=== PATIENT | male | born 1990 | race Caucasian/White ===

== ENCOUNTER 2017-03-07 19:34 | Inpatient (IN) | payer MEDICAID ==
[2017-03-07 22:14] LABS: HEMATOCRIT 39.6 % (42.0-54.0); HEMOGLOBIN 13.6 g/dL (13.5-17.5); MCH 31.1 pg (26.0-34.0); MCHC 34.3 g/dL (31.0-37.0); MCV 90.4 fL (80.0-100.0); MEAN PLATELET VOLUME 11.3 fL (7.4-10.4); PLATELET COUNT 239 10x3/uL (130-400); RBC 4.38 10x6/uL (4.20-6.10); RDW 12.7 % (11.5-14.5); WBC 30.5 10x3/uL (4.8-10.8)
[2017-03-07 22:29] LABS: ALBUMIN 3.7 g/dL (3.4-5.0); ALKALINE PHOSPHATASE 72 U/L (46-116); ALT (SGPT) 36 U/L (10-68); BILIRUBIN - TOTAL 0.58 mg/dL (0.2-1.3); CALC OSMOLALITY 273 mosm/kg (275-300); CALCIUM 8.9 mg/dL (8.5-10.1); CARBON DIOXIDE 24.3 mmol/L (21.0-32.0); CHLORIDE - SERUM 103 mmol/L (98-107); CREATININE - SERUM 1.1 mg/dL (0.6-1.3); GLUCOSE 104 mg/dL (74-106); POTASSIUM - SERUM 3.4 mmol/L (3.5-5.1); PROTEIN - SERUM 7.2 g/dL (6.4-8.2); SODIUM 137 mmol/L (136-145); UREA NITROGEN 12 mg/dL (7-18); eGFR NON AFRICAN AMERICAN 85 mL/min (90-120)
[2017-03-07 22:35] LABS: BASOPHILS 1 % (0-2); LYMPHOCYTES 4 % (15-50); MONOCYTES 1 % (2-11); NEUTROPHILS 86 % (40-80); PLATELET ESTIMATE NORMAL; PLATELET MORPHOLOGY GIANT PLTS PRESENT
[2017-03-08] MEDS ORDERED: HYDROCODONE-APA1 TAB PO (00:58)
--- NOTE | 2017-03-08 00:59 | NUR ---
PT ARRIVED TO ROOM AND USED RESTROOM GAIT STEADY, NO BALANCE ISSUES. PT STATES HE IS COLD. WARM BLANKET PROVIDED. PT LAYING DOWN. DENIES ANY NEEDS AT THIS TIME. PT IS AAO. WILL CPOC
--- NOTE | 2017-03-08 03:49 | NUR ---
TEMP IS 102.6 ORAL. [facility]. PT C/O PAIN WILL GET ORDERED PAIN MED. PT LAYING ON RIGHT SIDE IN BED. PT DENIES ANY NEEDS. WILL CPOC
[2017-03-08 06:02] VITALS: BP 129/58
--- NOTE | 2017-03-08 06:11 | NUR ---
PT TEMP IS NOW 100.8. WILL CONTINUE TO MONITOR PT. PT DENIES ANY NEEDS AT THIS TIME. NO S/S OF DISTRESS. WILL CPOC
[2017-03-08 08:00] VITALS: BP 131/64
[2017-03-08 08:13] VITALS: BP 128/68; BMI 36.2
--- NOTE | 2017-03-08 08:14 | NUR ---
AM ROUNDS - PT IS IN BED AND APEARS TO BE SLEEPING AT THIS TIME WITH EQUALA ND NON LABORED BREATHING. IV TO RIGHT HAND, SL. PT IS ON ROOM AIR. BED AT LOWEST POSITION. SIDE RAILS UP X2. CALL GRISSOM IN USE/REACH. WILL CONTINUE OT MONITOR
[2017-03-08 12:00] VITALS: BP 153/70
[2017-03-08 16:00] VITALS: BP 139/75
--- NOTE | 2017-03-08 19:33 | NUR ---
RECEIVED REPORT, WILL ASSUME CARE OF PT, PT SLEEPING, BED IS LOW, SR X2, CALL LIGHT IN REACH, WILL CONTINUE PLAN OF CARE
[2017-03-08 20:25] VITALS: BP 107/55
--- NOTE | 2017-03-08 22:48 | NUR ---
COMPLAINS OF BACK AND LEG PAIN, GAVE MORPHINE ORDER
--- NOTE | 2017-03-08 23:14 | NUR ---
PT AWAKE PLAYING ON PHONE. NO DISTRESS NOTED. WILL CONTINUE TO MONITOR.
[2017-03-09 00:51] VITALS: BP 121/57
--- NOTE | 2017-03-09 05:03 | NUR ---
COMPLAINS OF PAIN, GAVE MORPHINE ORDER
[2017-03-09 05:19] VITALS: BP 114/65
[2017-03-09 06:32] LABS: BASOPHILS 0.2 % (0-2); EOSINOPHILS 0.5 % (0-7); HEMATOCRIT 38.3 % (42.0-54.0); HEMOGLOBIN 12.6 g/dL (13.5-17.5); IMMATURE GRANULOCYTES 0.3 % (0-5); LYMPHOCYTES 12.9 % (15-50); MCH 30.2 pg (26.0-34.0); MCHC 32.9 g/dL (31.0-37.0); MCV 91.8 fL (80.0-100.0); MEAN PLATELET VOLUME 11.5 fL (7.4-10.4); NEUTROPHILS 80.1 % (40-80); PLATELET COUNT 205 10x3/uL (130-400); RBC 4.17 10x6/uL (4.20-6.10); RDW 13.5 % (11.5-14.5)
[2017-03-09 06:33] LABS: WBC 15.7 10x3/uL (4.8-10.8)
[2017-03-09 06:54] LABS: ALKALINE PHOSPHATASE 60 U/L (46-116); ALT (SGPT) 29 U/L (10-68); BILIRUBIN - TOTAL 0.15 mg/dL (0.2-1.3); CALCIUM 8.7 mg/dL (8.5-10.1); CARBON DIOXIDE 24.7 mmol/L (21.0-32.0); CHLORIDE - SERUM 107 mmol/L (98-107); GLUCOSE 148 mg/dL (74-106); POTASSIUM - SERUM 3.6 mmol/L (3.5-5.1); PROTEIN - SERUM 6.9 g/dL (6.4-8.2); SODIUM 140 mmol/L (136-145); eGFR NON AFRICAN AMERICAN > 90 mL/min (90-120)
[2017-03-09 06:55] LABS: CALC OSMOLALITY 279 mosm/kg (275-300); UREA NITROGEN 8 mg/dL (7-18)
[2017-03-09 08:21] VITALS: BP 111/50
[2017-03-09 12:26] VITALS: BP 128/74
--- NOTE | 2017-03-09 15:00 | NUR ---
ALERT AND ORIENTED X4. RESTING IN BED. RT HAND IV INFILTRATED. DC RT HAND IV TIP INTACT. RESITE IV TO LT FA 22G SUCCESSFUL X1 ATTEMPT. COMPLAINS OF RT LEG PAIN. FOLLOW PAIN MANAGEMENT ORDERED. DENIES SOB. BED LOCKED AND LOW. CALL LIGHT IN REACH. TWO SIDERAIL UP. SINUS RHTHYM 68bpm ON TELEMETY. REFUSE SCDs. AMBULATORY. GAIT STEADY.
[2017-03-09 15:58] VITALS: BP 127/76
[2017-03-09 19:32] VITALS: BP 125/79
--- NOTE | 2017-03-09 19:40 | NUR ---
PT IN BED RESTING QUEITLY. DENIES ANY PAIN OR NEEDS AT THIS TIME. BED IN LOW POSITION, CALL LIGHT WITHIN REACH.
--- NOTE | 2017-03-09 23:44 | NUR ---
PT C/O N/V. HAS NOT VOMITED BUT IS GAGGING. TOLD PT THAT SHE DOES NOT HAVE ANY ZOFRAN AVAILABLE AND THAT I WILL GIVE IT TO HER SOON IT IS AVAILABLE. PT STATED UNDERSTANDING. OFFERED PT SPRITE AND SHE SAID SHE WOULD TRY TO DRINK IT. GAVE PT COLD WASH CLOTH. CHANGED PTS BEDDING DUE TO INCONTINENCE CAUSED BY THE GAGGING/DRY-HEAVING. DENIES ANY OTHER NEEDS AT THIS TIME. BED IN LOW POSITION, CALL LIGHT WITHIN REACH.
[2017-03-10] VITALS: BP 122/69
--- NOTE | 2017-03-10 02:53 | NUR ---
PT IN BED RESTING QUIETLY WITH EYES CLOSED. BED RAILS UP X2. BREATHING EVEN AND UNLABORED. BED IN LOW POSITION, CALL LIGHT WITHIN REACH.
[2017-03-10 04:04] VITALS: BP 114/71
[2017-03-10 04:21] LABS: BASOPHILS 0.6 % (0-2); EOSINOPHILS 3.1 % (0-7); HEMATOCRIT 38.9 % (42.0-54.0); HEMOGLOBIN 12.8 g/dL (13.5-17.5); IMMATURE GRANULOCYTES 0.3 % (0-5); LYMPHOCYTES 37.5 % (15-50); MCH 30.2 pg (26.0-34.0); MCHC 32.9 g/dL (31.0-37.0); MCV 91.7 fL (80.0-100.0); MEAN PLATELET VOLUME 11.2 fL (7.4-10.4); MONOCYTES 9.7 % (2-11); NEUTROPHILS 48.8 % (40-80); PLATELET COUNT 222 10x3/uL (130-400); RBC 4.24 10x6/uL (4.20-6.10); RDW 13.4 % (11.5-14.5)
[2017-03-10 04:29] LABS: WBC 8.8 10x3/uL (4.8-10.8)
[2017-03-10 04:54] LABS: ALBUMIN 2.9 g/dL (3.4-5.0); ALKALINE PHOSPHATASE 54 U/L (46-116); ALT (SGPT) 26 U/L (10-68); BILIRUBIN - TOTAL 0.15 mg/dL (0.2-1.3); CALC OSMOLALITY 281 mosm/kg (275-300); CALCIUM 8.9 mg/dL (8.5-10.1); CHLORIDE - SERUM 106 mmol/L (98-107); CREATININE - SERUM 0.9 mg/dL (0.6-1.3); GLUCOSE 95 mg/dL (74-106); POTASSIUM - SERUM 4.1 mmol/L (3.5-5.1); SODIUM 142 mmol/L (136-145); UREA NITROGEN 9 mg/dL (7-18); eGFR NON AFRICAN AMERICAN > 90 mL/min (90-120)
--- NOTE | 2017-03-10 05:00 | NUR ---
PT RESTING IN BED WITH NO DISTRESS. NO NEEDS VOICED. CPOC.
--- NOTE | 2017-03-10 07:40 | NUR ---
AM ROUNDING- RECEIVED REPORT FROM MANDREL MAKER NURSE. PT IS CURRENTLY LAYING IN BED ON LEFT SIDE WITH EYES CLOSED RESTING. ON ROOM AIR. ON MONITOR SHOWING SR, HR 68. IV SEEN TO LEFT FOREARM THAT IS CURRENTLY SALINE LOCKED. NO NEED AT THIS CURRENT TIME. WILL CONTINUE TO MONITOR AND CONTINUE WITH PLAN OF CARE.
--- NOTE | 2017-03-10 07:48 | NUR ---
PT REFUSES SCDS. UP AD VIGNESH. ON LOVENOX INJECTION FOR DVT PREVENTION.
[2017-03-10 08:11] VITALS: BP 130/72
--- NOTE | 2017-03-10 10:29 | NUR ---
PAGED SARA ROMERO TO SEE ABOUT GETTING PT "ABREVA" REQUESTED BY PT FOR FEVER BLISTER. WILL AWAIT CALLBACK.
--- NOTE | 2017-03-10 10:33 | NUR ---
RECEIVED CALLBACK FROM SARA ROMERO. INFORMED HER THAT PT HAS FEVER BLISTER ON LIP AND IS REQUESTING ABREVA. SARA ROMERO STATES TO ORDER ABREVA. WILL PUT ORDERS IN GIVEN.
[2017-03-10 11:55] VITALS: BP 118/68
--- NOTE | 2017-03-10 12:53 | NUR ---
PT GIVEN MORPHINE ORDERED FOR 11/24 PAIN COMING FROM RIGHT LOWER EXTREMITY. PT DENIES ANY FURTHER NEED AT THIS TIME. WILL CONTINUE TO MONITOR.
--- NOTE | 2017-03-10 16:19 | NUR ---
PT IS CURRENTLY LAYING IN BED ON BACK WITH EYES CLOSED RESTING. PT DENIES ANY NEED AT CURRENT TIME. WILL CONTINUE TO MONITOR AND CONTINUE WITH PLAN OF CARE.
--- NOTE | 2017-03-10 18:07 | NUR ---
PT IS CURRENTLY SITTING UP IN BED WITH EYES OPEN RESTING. PT IS C/O OF 7/10 PAIN FROM RIGHT LEG. PT GIVEN NORCO PRN ORDERED FOR PAIN. PT DENIES ANY FURTHER NEED AT THIS TIME. WILL CONTINUE TO MONITOR.
[2017-03-10 19:00] VITALS: BP 120/72
--- NOTE | 2017-03-10 19:29 | NUR ---
PT SITTING UP IN BED, AWAKE, ALERT, ORIENTED, FAMILY AT BEDSIDE. PT DENIES ANY NEEDS. CONTINUE TO MONITOR CLOSELY. BED LOW, CALL LIGHT IN REACH, SIDE RAILS X 2, HOB 20 DEGREES.
--- NOTE | 2017-03-10 19:44 | NUR ---
PT CALLED REQUESTING TO BE SL AT THIS TIME. NO OTHER NEEDS. CONTINUE TO MONITOR.
--- NOTE | 2017-03-10 21:41 | NUR ---
WENT TO ADMINISTER PTS 21:00 VAN, AND PT WAS NOT IN ROOM, NOR IN HIS BATHROOM. PT DID NOT NOTIFY ME THAT HE WAS LEAVING HIS ROOM. WILL CONTINUE TO MONITOR.
--- NOTE | 2017-03-10 21:50 | NUR ---
PT BACK TO ROOM, STATED HE WENT TO [place] FOR A DR. TORRES. PT IS READY FOR A SHOWER. DENIES ANY OTHER NEEDS. CONTINUE TO MONITOR PT CLOSELY.
--- NOTE | 2017-03-10 23:22 | NUR ---
PT REQUESTS SERG AGRY FOR RLE PAIN. I ASKED PT HOW IT FEELS WHEN HE WALKS, PT STATES IT FEELS TIGHT BUT TOLERABLE. DENIES ANY OTHER NEEDS. CONTINUE TO MONITOR CLOSELY.
[2017-03-11] VITALS: BP 118/76
[2017-03-11 04:00] VITALS: BP 111/54
[2017-03-11 05:44] LABS: BASOPHILS 0.3 % (0-2); EOSINOPHILS 2.3 % (0-7); HEMATOCRIT 41.3 % (42.0-54.0); HEMOGLOBIN 13.8 g/dL (13.5-17.5); IMMATURE GRANULOCYTES 0.3 % (0-5); LYMPHOCYTES 38.5 % (15-50); MCH 30.3 pg (26.0-34.0); MCHC 33.4 g/dL (31.0-37.0); MCV 90.8 fL (80.0-100.0); MEAN PLATELET VOLUME 11.3 fL (7.4-10.4); MONOCYTES 6.9 % (2-11); NEUTROPHILS 51.7 % (40-80); RBC 4.55 10x6/uL (4.20-6.10); RDW 13.1 % (11.5-14.5); WBC 8.6 10x3/uL (4.8-10.8)
[2017-03-11 05:49] LABS: PLATELET COUNT 283 10x3/uL (130-400)
[2017-03-11 06:02] LABS: ALKALINE PHOSPHATASE 53 U/L (46-116); ALT (SGPT) 30 U/L (10-68); CALC OSMOLALITY 281 mosm/kg (275-300); CARBON DIOXIDE 27.9 mmol/L (21.0-32.0); CHLORIDE - SERUM 104 mmol/L (98-107); CREATININE - SERUM 0.8 mg/dL (0.6-1.3); GLUCOSE 94 mg/dL (74-106); POTASSIUM - SERUM 3.7 mmol/L (3.5-5.1); SODIUM 142 mmol/L (136-145); UREA NITROGEN 9 mg/dL (7-18); eGFR NON AFRICAN AMERICAN > 90 mL/min (90-120)
[2017-03-11 07:45] VITALS: BP 118/70
--- NOTE | 2017-03-11 07:52 | NUR ---
AM ROUNDING- RECEIVED REPORT FROM OPERATIONS CONSULTANT NURSE BRANDI. PT IS CURRENTLY LAYING IN BED WITH EYES OPEN RESTING. PT DENIES ANY PAIN AT THIS TIME AND STATES OPERATIONS CONSULTANT NURSE TX HIM WITH PAIN MEDICATION. ON ROOM AIR. ON MONITOR SHOWING SR, HR 96. WILL CONTINUE TO MONITOR AND CONTINUE WITH PLAN OF CARE.
--- NOTE | 2017-03-11 09:34 | NUR ---
AM MEDICATIONS GIVEN AND SHIFT ASSESSMENT COMPLETED. PT IS CURRENTLY SITTING UP IN BED EATING BREAKFAST. PT DENIES ANY NEED AT THIS TIME. WILL CONTINUE TO MONITOR.
[2017-03-11 12:53] VITALS: BP 134/68
[2017-03-11 16:07] VITALS: BP 136/77
[2017-03-11] MEDS ORDERED: CLEOCIN HCL300 MG PO (16:12)
--- NOTE | 2017-03-11 17:54 | NUR ---
PT REFUSED A FLU VACCINE.
--- NOTE | 2017-03-11 18:33 | NUR ---
D/C INSTRUCTIONS EXPLAINED TO PT. D/C PAPERWORK SIGNED BY PT AND PLACED IN CHART. PT GIVEN WRITTEN PRESCRIPTIONS ORDERED. PT IS CONCERNED ABOUT NOT RECEIVING PRESCRIPTION FOR PAIN MEDICATION THAT HE HAS BEEN RECEIVING IN THIS HOSPITAL. CRISTINA HARDWICK, STAMP REDEMPTION CLERK AWARE. CRISTINA STATES THAT PT WILL HAVE TO FOLLOW UP WITH DR. SWEENEY REGARDING PAIN MEDICATION. RELAYED THIS INFORMATION TO PT. PT AGREES. IV TO LEFT FOREARM REMOVED WITH CATH TIP INTACT. HEART MONITOR REMOVED BY PT AND RETURNED TO CRISTINA IN TELEMETRY. AWAITING PTS RIDE TO GET HERE NOW. WILL D/C ONCE RIDE IS HERE.
--- NOTE | 2017-03-11 19:15 | NUR ---
PT D/C WITH [facility].
--- NOTE | 2017-03-30 11:14 | DS ---
PATIENT:OSEAS COHN :86 MEDICAL RECORD: [id number] DISCHARGE SUMMARY ADMISSION DATE: 03/08/17 DISCHARGE DATE: 03/11/17 This is a discharge dated 03/11/2017 from the inpatient hospital. DISCHARGE DIAGNOSES: 1. Cellulitis of the right lower extremity. 2. Leukocytosis. 3. Fever. 4. Hypokalemia. 5. Autoimmune disease. 6. Rheumatoid arthritis. PROCEDURES IN THIS HOSPITALIZATION: None. CONSULTS IN THIS HOSPITALIZATION: None. HOSPITAL COURSE: Full H&P is located elsewhere on the chart on this 26-year-old male who was admitted for treatment of the right lower extremity cellulitis. He was started on IV antibiotics and had daily wound care. Electrolytes were managed by protocol. He had significant improvement of his symptoms with antibiotics and was considered stable for discharge on 03/11/2017. DISCHARGE MEDICATIONS: As per discharge medication reconciliation. DISCHARGE DISPOSITION: The patient is discharged home. He will continue his current diet and level of activity, and will follow up with his primary care as directed. At least 30 minutes was spent in this discharge activity. TRANSINT:[id number] Voice Confirmation ID: [id number] DOCUMENT ID: [id number] Dictated By: BETINA MOLINA I have interviewed/examined the above patient and agree with these documented findings. MIGUEL SWEENEY MD at 1120 at 1114 CC: [id number] DICTATION DATE: 03/29/17 175 ELECTRIC RELAY TESTER: 03/29/17 1813 DIS IN 03/11/17 [facility] [address] [place] [address]
== END 2017-03-11 19:37 | disposition home or self-care (01) | DRG 603 ==
LOC: D.ER 19:34 → D.M2 03-08 00:24
PROVIDERS: Nurse Practitioner Acute Care; ADMIT Family Medicine
DX: L03.115 Cellulitis of right lower limb (principal); M06.9 Rheumatoid arthritis, unspecified; D89.89 Other specified disorders involving the immune mechanism, not elsewhere classified

== ENCOUNTER 2017-10-09 00:46 | Emergency (ER) | payer SELFPAY ==
[~2017-10-09 00:46] MED LIST: CLEOCIN HCL300 MG PO; HYDROCODONE-APA1 TAB PO
== END 2017-10-09 01:26 | disposition home or self-care (01) ==
LOC: D.ER 00:46
DX: S46.911A Strain of unspecified muscle, fascia and tendon at shoulder and upper arm level, right arm, initial encounter (principal); X58.XXXA Exposure to other specified factors, initial encounter; Y93.89 Activity, other specified; Y92.019 Unspecified place in single-family (private) house as the place of occurrence of the external cause

== ENCOUNTER 2018-04-16 20:28 | Emergency (ER) | payer SELFPAY ==
[~2018-04-16] VITALS: Ht 170.2 cm; Wt 104.5 kg
[2018-04-16 20:36] VITALS: BP 135/75; Ht 170.2 cm; Wt 104.5 kg
[2018-04-16] MEDS ORDERED: BACLOFEN20 M1 PO (22:42)
[2018-04-16] MEDS ORDERED: VOLTAREN75 MG PO (22:42)
== END 2018-04-16 23:15 | disposition home or self-care (01) ==
LOC: D.ER 20:28
DX: M75.51 Bursitis of right shoulder (principal); M25.511 Pain in right shoulder; F17.200 Nicotine dependence, unspecified, uncomplicated

== ENCOUNTER 2018-09-13 21:48 | Emergency (ER) | payer SELFPAY ==
[~2018-09-13] VITALS: Ht 170.2 cm; Wt 104.5 kg
[~2018-09-13 21:48] MED LIST changes: +BACLOFEN20 M1 PO; +VOLTAREN75 MG PO
[2018-09-13 21:51] VITALS: Ht 170.2 cm; Wt 104.5 kg
[2018-09-13] MEDS ORDERED: TORADOL10 MG PO (23:51)
[2018-09-14 00:16] VITALS: BP 132/89
== END 2018-09-14 00:16 | disposition home or self-care (01) ==
LOC: D.ER 21:48
DX: S92.352A Displaced fracture of fifth metatarsal bone, left foot, initial encounter for closed fracture (principal); V87.8XXA Person injured in other specified noncollision transport accidents involving motor vehicle (traffic), initial encounter; Y93.89 Activity, other specified; Y92.410 Unspecified street and highway as the place of occurrence of the external cause